=== PATIENT | male | born 1985 | race Caucasian/White ===

== ENCOUNTER 2020-01-13 12:36 | Emergency (ER) | payer OTHER, SELFPAY ==
[~2020-01-13] VITALS: Ht 170.2 cm; Wt 70.3 kg
--- NOTE | 2020-01-13 12:40 | NUR ---
Placed in room 7 . Placed on radiation monitor, blood pressure machine and pulse oximeter. To gown for exam. Side rails up. Report given to GLENDY Ambrosio.
--- NOTE | 2020-01-13 12:45 | NUR ---
Pt walked in to ER with c/o abdominal pain x2 days, 10/25. Denies n/v at this time. Reports testing positive for Covid as of 01/11/2020. Denies cough, fever or SOB at this time. V/S stable, pt is afebrile. Currently resting in bed, will continue to monitor.
[2020-01-13 12:51] VITALS: BP_SYST 138
--- NOTE | 2020-01-13 13:25 | NUR ---
ER Dr. Medrano at bedside examining patient.
[2020-01-13] MEDS ORDERED: NACL 0.9% 1,000 ML IV ONE (13:30)
[2020-01-13] MEDS ORDERED: MORPHINE 4 MG/ML INJ. SYRINGE IVP ONE ×2 (13:30→16:30)
--- NOTE | 2020-01-13 13:40 | NUR ---
# 20 gauge angiocath placed to RAC. Use of asceptic technique. Opsite placed over site. Blood return noted. Blood for lab drawn from site. Flushed with 10 cc of normal saline. No evidence of infiltration noted. Patient tolerated well.
--- NOTE | 2020-01-13 13:50 | NUR ---
Received report from Gaby PIKE
[2020-01-13 13:51] LABS: BASOPHILS % (AUTO) 0.2 % (0.0-2.0); EOSINOPHILS % (AUTO) 0.1 % (0.0-4.0); HEMATOCRIT 47.6 % (36-54); LYMPHOCYTES % (AUTO) 10.5 % (20.5-51.5); MEAN CORPUSCULAR HEMOGLOBIN 33 pg (27-31); MEAN CORPUSCULAR HGB CONC 34 % (32-36); MEAN CORPUSCULAR VOLUME 99 fL (79.0-98.0); MONOCYTES # (AUTO) 0.5 K/uL (0.0-1.0); NEUTROPHILS # (AUTO) 7.9 K/uL (1.8-7.7); NEUTROPHILS % (AUTO) 84.2 % (40.0-70.0); PLATELET COUNT (AUTO) 162 K/uL (130-430); RED BLOOD CELL COUNT(AUTO) 4.83 MIL/uL (4.2-6.2); RED CELL DISTRIBUTION WIDTH 12.9 % (9.0-15.0); WHITE BLOOD COUNT (AUTO) 9.4 K/uL (4.8-10.8)
[2020-01-13 14:04] LABS: CALCIUM 8.8 mg/dL (8.4-11.0); CREATININE 1.03 mg/dL (0.55-1.30); POTASSIUM 3.7 mmol/L (3.5-5.1)
[2020-01-13 14:10] LABS: ALBUMIN 3.7 g/dL (3.4-4.8); TOTAL BILIRUBIN 0.7 mg/dL (0.0-1.0)
--- NOTE | 2020-01-13 14:45 | NUR ---
PT TO RADIOLOGY WITH STAFF VIA WHEELCHAIR
--- NOTE | 2020-01-13 15:09 | NUR ---
PT TO ER BED 7 FROM RADIOLOGY
--- NOTE | 2020-01-13 16:20 | NUR ---
ER Dr. CARVER at bedside examining patient.
[2020-01-13 17:08] VITALS: BP_SYST 120
--- NOTE | 2020-01-13 17:08 | NUR ---
Patient given written and verbal discharge instructions and verbalizes understanding. ER MD discussed with patient the results and treatment provided. Patient in stable condition. ID arm band Rx of CIPRO, FLAGYL, MOTRIN, NORCO, ZOFRAN given. Patient educated on pain management and to follow up with PMD. Pain Scale 3/10 Opportunity for questions provided and answered. Medication side effect fact sheet provided.
== END 2020-01-13 17:08 | disposition home or self-care (01) ==
LOC: SED 12:36
DX: K57.92 Diverticulitis of intestine, part unspecified, without perforation or abscess without bleeding (principal); R10.2 Pelvic and perineal pain; F12.90 Cannabis use, unspecified, uncomplicated
CPT/HCPCS: 36415; 74176; 80053; 81002; 83690; 85025; 96361; 96374; 96376; 99284; J2270; J7030